=== PATIENT | male | born 1990 | race African-American/Black ===

== ENCOUNTER 2017-04-23 10:19 | Emergency (ER) | payer SELFPAY ==
[2017-04-23 11:28] LABS: BASOPHILS 0.4 % (0-2); EOSINOPHILS 2.9 % (0-7); HEMATOCRIT 45.2 % (42.0-54.0); HEMOGLOBIN 15.2 g/dL (13.5-17.5); LYMPHOCYTES 30.7 % (15-50); MCH 29.7 pg (26.0-34.0); MCHC 33.6 g/dL (31.0-37.0); MCV 88.3 fL (80.0-100.0); MEAN PLATELET VOLUME 9.8 fL (7.4-10.4); MONOCYTES 11.4 % (2-11); NEUTROPHILS 54.6 % (40-80); RBC 5.12 10x6/uL (4.20-6.10); RDW 12.6 % (11.5-14.5); WBC 2.8 10x3/uL (4.8-10.8)
[2017-04-23 11:30] LABS: PLATELET COUNT 217 10x3/uL (130-400)
[2017-04-23 11:42] LABS: ALBUMIN 3.9 g/dL (3.4-5.0); ALKALINE PHOSPHATASE 102 U/L (46-116); ALT (SGPT) 35 U/L (10-68); CALC OSMOLALITY 279 mosm/kg (275-300); CALCIUM 8.8 mg/dL (8.5-10.1); CARBON DIOXIDE 30.7 mmol/L (21.0-32.0); CHLORIDE - SERUM 105 mmol/L (98-107); GLUCOSE 104 mg/dL (74-106); POTASSIUM - SERUM 3.9 mmol/L (3.5-5.1); PROTEIN - SERUM 7.9 g/dL (6.4-8.2); SODIUM 141 mmol/L (136-145); UREA NITROGEN 10 mg/dL (7-18); eGFR NON AFRICAN AMERICAN > 90 mL/min (90-120)
[2017-04-23 12:47] LABS: APPEARANCE CLEAR (CLEAR); BILIRUBIN NEGATIVE (NEGATIVE); COLOR YELLOW (YELLOW); GLUCOSE NEGATIVE (NEGATIVE); KETONE NEGATIVE (NEGATIVE); LEUKOCYTE ESTERASE NEGATIVE (NEGATIVE); NITRITE NEGATIVE (NEGATIVE); PROTEIN NEGATIVE (NEGATIVE); SPECIFIC GRAVITY 1.015 (1.005-1.020); UROBILINOGEN NORMAL (NORMAL)
== END 2017-04-23 12:37 | disposition home or self-care (01) ==
LOC: D.ER 10:19
PROVIDERS: Nurse Practitioner Family
DX: K29.00 Acute gastritis without bleeding (principal); K21.9 Gastro-esophageal reflux disease without esophagitis

== ENCOUNTER 2018-07-15 20:40 | Emergency (ER) | payer MEDICARE ==
[~2018-07-15] VITALS: Ht 182.9 cm; Wt 91.8 kg
[2018-07-15 21:02] VITALS: Ht 182.9 cm; Wt 91.8 kg
[2018-07-15] MEDS ORDERED: VOLTAREN75 MG PO (21:53)
[2018-07-15] MEDS ORDERED: BACTRIM DS TABL1 TAB PO (21:53)
[2018-07-15 21:58] VITALS: BP 142/86
== END 2018-07-15 21:58 | disposition home or self-care (01) ==
LOC: D.ER 20:40
DX: L03.314 Cellulitis of groin (principal); F17.200 Nicotine dependence, unspecified, uncomplicated

== ENCOUNTER 2018-08-21 11:21 | Emergency (ER) | payer MEDICARE ==
[~2018-08-21] VITALS: Ht 182.9 cm; Wt 91.8 kg
[~2018-08-21 11:21] MED LIST: BACTRIM DS TABL1 TAB PO; VOLTAREN75 MG PO
[2018-08-21 11:27] VITALS: BP 128/76; Ht 182.9 cm; Wt 91.8 kg
[2018-08-21] MEDS ORDERED: ZOFRAN8 MG PO (11:49)
[2018-08-21] MEDS ORDERED: MECLIZINE HCL25 MG PO (11:49)
== END 2018-08-21 12:30 | disposition home or self-care (01) ==
LOC: D.ER 11:21
DX: H81.399 Other peripheral vertigo, unspecified ear (principal); R11.0 Nausea; F17.200 Nicotine dependence, unspecified, uncomplicated

== ENCOUNTER 2019-01-09 15:33 | Emergency (ER) | payer MEDICARE ==
[~2019-01-09] VITALS: Ht 182.9 cm; Wt 93.6 kg
[~2019-01-09 15:33] MED LIST changes: +MECLIZINE HCL25 MG PO; +ZOFRAN8 MG PO
[2019-01-09 15:46] VITALS: Ht 182.9 cm; Wt 93.6 kg
[2019-01-09 16:14] LABS: BASOPHILS 0.1 % (0-2); EOSINOPHILS 0.7 % (0-7); HEMATOCRIT 51.3 % (42.0-54.0); HEMOGLOBIN 18.4 g/dL (13.5-17.5); IMMATURE GRANULOCYTES 0.2 % (0-5); LYMPHOCYTES 7.2 % (15-50); MCH 30.2 pg (26.0-34.0); MCHC 35.9 g/dL (31.0-37.0); MCV 84.1 fL (80.0-100.0); MONOCYTES 7.3 % (2-11); NEUTROPHILS 84.5 % (40-80); RDW 14.2 % (11.5-14.5); WBC 9.9 10x3/uL (4.8-10.8)
[2019-01-09 16:15] LABS: PLATELET COUNT 282 10x3/uL (130-400)
[2019-01-09 16:58] LABS: ALBUMIN 3.4 g/dL (3.4-5.0); ALKALINE PHOSPHATASE 51 U/L (46-116); ALT (SGPT) 24 U/L (10-68); BILIRUBIN - TOTAL 0.52 mg/dL (0.2-1.3); CALC OSMOLALITY 277 mosm/kg (275-300); CARBON DIOXIDE 26.6 mmol/L (21.0-32.0); CHLORIDE - SERUM 105 mmol/L (98-107); GLUCOSE 92 mg/dL (74-106); POTASSIUM - SERUM 3.8 mmol/L (3.5-5.1); PROTEIN - SERUM 6.3 g/dL (6.4-8.2); SODIUM 140 mmol/L (136-145); UREA NITROGEN 11 mg/dL (7-18); eGFR NON AFRICAN AMERICAN > 90 mL/min (90-120)
[2019-01-09 17:02] LABS: AMYLASE - SERUM 85 U/L (25-115); LIPASE 128 U/L (73-393); TROPONIN-I < 0.017 ng/mL (0.000-0.060)
[2019-01-09 17:28] LABS: APPEARANCE CLEAR (CLEAR); BILIRUBIN NEGATIVE (NEGATIVE); COLOR YELLOW (YELLOW); GLUCOSE NEGATIVE (NEGATIVE); KETONE NEGATIVE (NEGATIVE); NITRITE NEGATIVE (NEGATIVE); PROTEIN NEGATIVE (NEGATIVE); SPECIFIC GRAVITY 1.015 (1.005-1.020); UROBILINOGEN NORMAL (NORMAL)
[2019-01-09] MEDS ORDERED: ZOFRAN4 MG PO (18:03)
[2019-01-09 18:15] VITALS: BP 118/57
== END 2019-01-09 18:16 | disposition home or self-care (01) ==
LOC: D.ER 15:33
PROVIDERS: Family Medicine
DX: K52.9 Noninfective gastroenteritis and colitis, unspecified (principal)

== ENCOUNTER 2019-02-13 09:25 | Emergency (ER) | payer MEDICARE ==
[~2019-02-13] VITALS: Ht 182.9 cm; Wt 96.4 kg
[~2019-02-13 09:25] MED LIST changes: +ZOFRAN4 MG PO
[2019-02-13 09:39] VITALS: Ht 182.9 cm; Wt 96.4 kg
[2019-02-13 10:12] LABS: EOSINOPHILS 1.5 % (0-7); HEMATOCRIT 45.2 % (42.0-54.0); HEMOGLOBIN 15.6 g/dL (13.5-17.5); LYMPHOCYTES 31.6 % (15-50); MCH 29.8 pg (26.0-34.0); MCHC 34.5 g/dL (31.0-37.0); MCV 86.3 fL (80.0-100.0); MEAN PLATELET VOLUME 9.6 fL (7.4-10.4); MONOCYTES 10.5 % (2-11); NEUTROPHILS 55.4 % (40-80); RBC 5.24 10x6/uL (4.20-6.10); RDW 13.1 % (11.5-14.5)
[2019-02-13 10:16] LABS: PLATELET COUNT 182 10x3/uL (130-400)
[2019-02-13 10:24] LABS: ALBUMIN 3.9 g/dL (3.4-5.0); ALKALINE PHOSPHATASE 89 U/L (46-116); ALT (SGPT) 74 U/L (10-68); BILIRUBIN - TOTAL 0.34 mg/dL (0.2-1.3); CALC OSMOLALITY 278 mosm/kg (275-300); CALCIUM 8.5 mg/dL (8.5-10.1); CARBON DIOXIDE 29.8 mmol/L (21.0-32.0); CHLORIDE - SERUM 102 mmol/L (98-107); GLUCOSE 104 mg/dL (74-106); POTASSIUM - SERUM 3.8 mmol/L (3.5-5.1); PROTEIN - SERUM 7.9 g/dL (6.4-8.2); SODIUM 139 mmol/L (136-145); UREA NITROGEN 14 mg/dL (7-18); eGFR NON AFRICAN AMERICAN > 90 mL/min (90-120)
[2019-02-13 10:36] LABS: CREATINE KINASE 341 UL (21-232)
[2019-02-13 10:40] LABS: TROPONIN-I < 0.017 ng/mL (0.000-0.060)
[2019-02-13 10:56] LABS: APTT 27.8 SECONDS (22.8-39.4); INR 1.04 (0.85-1.17); PROTIME 13.1 SECONDS (11.6-15.0)
[2019-02-13 10:57] LABS: UDS - AMPHET NEGATIVE QUAL (NEGATIVE); UDS - BARB NEGATIVE QUAL (NEGATIVE); UDS - BENZO NEGATIVE QUAL (NEGATIVE); UDS - COCAINE NEGATIVE QUAL (NEGATIVE); UDS - OPIATE NEGATIVE QUAL (NEGATIVE); UDS - PCP NEGATIVE QUAL (NEGATIVE); UDS - THC POSITIVE QUAL (NEGATIVE)
[2019-02-13 11:47] VITALS: BP 141/73
== END 2019-02-13 11:48 | disposition home or self-care (01) ==
LOC: D.ER 09:25
PROVIDERS: Family Medicine
DX: R00.0 Tachycardia, unspecified (principal)

== ENCOUNTER 2019-11-16 11:18 | Emergency (ER) | payer MEDICARE ==
[~2019-11-16] VITALS: Ht 182.9 cm; Wt 97.3 kg
[2019-11-16 11:24] VITALS: Ht 182.9 cm; Wt 97.3 kg
[2019-11-16 12:05] LABS: APPEARANCE HAZY (CLEAR); BACTERIA FEW /hpf (NEGATIVE); BILIRUBIN NEGATIVE (NEGATIVE); COLOR YELLOW (YELLOW); EPITHELIAL CELLS 0-5 /hpf (0-5); GLUCOSE NEGATIVE (NEGATIVE); KETONE NEGATIVE (NEGATIVE); MUCUS <1+ /lpf (NONE SEEN); NITRITE NEGATIVE (NEGATIVE); PROTEIN NEGATIVE (NEGATIVE); RED CELLS - URINE 0-5 /hpf (0-5); UROBILINOGEN NORMAL (NORMAL); WHITE CELLS - URINE 0-5 /hpf (NEGATIVE)
[2019-11-16 12:29] VITALS: BP 135/74
== END 2019-11-16 12:30 | disposition home or self-care (01) ==
LOC: D.ER 11:18
PROVIDERS: Family Medicine
DX: Z20.2 Contact with and (suspected) exposure to infections with a predominantly sexual mode of transmission (principal); R36.9 Urethral discharge, unspecified